=== PATIENT | female | born 1975 | race Caucasian/White ===

== ENCOUNTER 2019-04-30 05:28 | Day surgery (SDC) | payer OTHER ==
[~2019-04-30] VITALS: Ht 170.2 cm; Wt 106.6 kg
[2019-04-30] MEDS ORDERED: SEVOFLURANE 250 ML BTL INH ONE (07:25)
[2019-04-30] MEDS ORDERED: DEXAMETHASONE 4 MG/ML VIAL ONE (07:25)
[2019-04-30] MEDS ORDERED: PROPOFOL 200 MG/20 ML VIAL IV ONE (07:25)
[2019-04-30] MEDS ORDERED: ONDANSETRON 4 MG/2 ML VIAL ONE (07:25)
[2019-04-30] MEDS ORDERED: NACL 0.9% 1,000 ML IV SCH (08:09)
[2019-04-30] MEDS ORDERED: diphenhydrAMINE 50 MG/ML VIAL IVP PRN (08:10)
[2019-04-30] MEDS ORDERED: MEPERIDINE 25 MG/ML SYR IVP PRN (08:10)
[2019-04-30] MEDS ORDERED: ONDANSETRON 4 MG/2 ML VIAL IVP PRN (08:10)
[2019-04-30] MEDS ORDERED: HYDROmorphone 1 MG/ML AMP IVP PRN (08:10)
[2019-04-30] MEDS ORDERED: BLOOD GLUCOSE MONITORING 1 DEV DEV FS SCH (09:10)
== END 2019-04-30 10:30 | disposition home or self-care (01) ==
LOC: MDS 05:28 → MMU 05:59 → MDS 10:30
PROVIDERS: ATTEND Obstetrics & Gynecology
DX: N92.0 Excessive and frequent menstruation with regular cycle (principal); E11.9 Type 2 diabetes mellitus without complications; I10 Essential (primary) hypertension; M06.9 Rheumatoid arthritis, unspecified; E78.5 Hyperlipidemia, unspecified; G43.909 Migraine, unspecified, not intractable, without status migrainosus; F32.9 Major depressive disorder, single episode, unspecified; Z88.8 Allergy status to other drugs, medicaments and biological substances; Z90.49 Acquired absence of other specified parts of digestive tract; Z90.710 Acquired absence of both cervix and uterus; Z98.890 Other specified postprocedural states; Z79.899 Other long term (current) drug therapy
CPT/HCPCS: 58563; 71045; 88305; 93005; J1100; J2405; J2704; J7030; Q0092